=== PATIENT | female | born 1965 | race Caucasian/White ===

== ENCOUNTER 2021-08-25 12:43 | Outpatient (CLI) | payer BC | END 2021-08-25 12:44 | disposition home or self-care (01) | LOC: CSHMRI 12:43 | PROVIDERS: ATTEND Student in an Organized Health Care Education/Training Program | DX: H90.5 Unspecified sensorineural hearing loss (principal) | CPT/HCPCS: 70553 ==

== ENCOUNTER 2024-04-26 08:22 | Outpatient (CLI) | payer BC | END 2024-04-26 08:23 | disposition home or self-care (01) | LOC: CSHMAMMO 08:22 | PROVIDERS: ATTEND Specialist | DX: Z12.31 Encounter for screening mammogram for malignant neoplasm of breast (principal); Z98.890 Other specified postprocedural states | CPT/HCPCS: 77063; 77067 ==